=== PATIENT | female | born 1955 | race Caucasian/White ===

== ENCOUNTER 2018-12-01 10:05 | Emergency (ER) | payer MEDICARE, OTHER ==
[2018-12-01 10:15] VITALS: TEMP 97.6
[2018-12-01] MEDS ORDERED: NITROGLYCERIN 0.4 MG TAB SL PRN (10:22)
[2018-12-01] MEDS ORDERED: MORPHINE SULFATE 10 MG/ML SOL IV PRN (10:22)
[2018-12-01] MEDS ORDERED: SODIUM CHLORIDE 0.9% FLUSH 10 ML SOL IV PRN (10:22)
[2018-12-01] MEDS ORDERED: ASPIRIN 81 MG CHEWABLE CTB PO STA (10:22)
[2018-12-01 10:29] LABS: BASOPHILS % (AUTO) 1 % (0-3); EOSINOPHILS % (AUTO) 1 % (0-9); HEMATOCRIT 45 % (35-47); HEMOGLOBIN 13.7 gm/dl (12.0-15.5); MEAN CORPUSCULAR HEMOGLOBIN 25.8 pg (27.0-32.0); MEAN CORPUSCULAR HGB CONC 30.4 gm/dl (32.0-36.0); MEAN CORPUSCULAR VOLUME 85 fL (81-99); MONOCYTES % (AUTO) 6.1 % (0-12); NEUTROPHILS % (AUTO) 80.9 % (37-80)
[2018-12-01 10:31] VITALS: RESP 18; O2SAT 98
[2018-12-01 10:37] VITALS: BP 138/71; PULSE 98
[2018-12-01 10:42] LABS: CALCIUM 9.8 mg/dl (8.5-10.1); CARBON DIOXIDE 25.6 mEq/L (21-32); CREATININE 0.99 mg/dl (0.60-1.00); POTASSIUM 3.9 mMol/L (3.5-5.1); TROP I 0.046 ng/ml (0.000-0.056)
[2018-12-01 10:54] LABS: INR 11.24 (0.86-1.12)
== END 2018-12-01 10:42 | disposition short-term general hospital (02) | DRG 282 ==
LOC: ED 10:05
DX: I21.02 ST elevation (STEMI) myocardial infarction involving left anterior descending coronary artery (principal); Z79.01 Long term (current) use of anticoagulants
CPT/HCPCS: 71045; 80048; 84484; 85025; 85610; 93005; 99291